=== PATIENT | female | born 1975 | race Caucasian/White ===

== ENCOUNTER 2017-04-26 10:31 | Emergency (ER) | payer SELFPAY ==
[~2017-04-26] VITALS: Ht 152.4 cm; Wt 96.0 kg
[2017-04-26] MEDS ORDERED: SODIUM CHLORIDE 0.9% 1,000 ML IV ONE (11:57)
[2017-04-26] MEDS ORDERED: KETOROLAC 30MG/ML VIAL IV ONE (12:00)
[2017-04-26 12:37] LABS: BASOPHILS % 0.4 % (0.0-2.0); HEMATOCRIT. 35.2 % (36.0-48.0); LYMPHOCYTES % 25.6 % (20.0-50.0); MEAN PLATELET VOLUME 7.3 fl (7.4-10.4); MONOCYTES % 6.6 % (2.0-8.0); NEUTROPHILS % 66.4 % (40.0-76.0); PLATELET 286 x1000/uL (130-400); RED BLOOD CELL COUNT 3.87 mill/uL (4.2-5.4); RED CELL DISTRIBUTION WIDTH 13.3 % (11.6-14.6)
[2017-04-26 12:43] LABS: HCG SCREEN NEGATIVE
[2017-04-26 13:03] LABS: B-HCG QUANTITATIVE < 1 mIU/mL (<3); CARBON DIOXIDE 26 mEq/L (21-32); CHLORIDE 107 mEq/L (98-107)
[2017-04-26 15:09] VITALS: BP 108/72
== END 2017-04-26 15:25 | disposition home or self-care (01) ==
LOC: EDSEX 10:31 → ER 10:31
DX: D25.9 Leiomyoma of uterus, unspecified (principal); R03.0 Elevated blood-pressure reading, without diagnosis of hypertension
CPT/HCPCS: 36415; 76830; 76856; 80053; 84702; 84703; 85025; 86850; 86900; 86901; 96361; 96374; 99285; J1885; J7030; Z7610